=== PATIENT | male | born 1995 | race Caucasian/White ===

== ENCOUNTER 2024-08-10 07:37 | Outpatient (CLI) | payer OTHER ==
--- NOTE | 2024-08-10 22:40 | XRAY Report ---
PROCEDURE: Ankle 3+V RT INDICATIONS: SPRAIN OF UNSPECIFIED LIGAMENT OF RIGHT ANKLE TECHNIQUE: 3 views of the ankle were acquired. COMPARISON: None. FINDINGS: Bones: No acute fractures or dislocations. Old injury involving distal fibular shaft is seen with ch ronic-appearing deformity. Ankle mortise is normally aligned. No suspicious bony lesions. Soft tissues: Mild lateral ankle soft tissue swelling is seen. Moderate tibiotalar joint effusion. A chilles tendon appears normal. IMPRESSION: No acute ankle fracture or dislocation. Old injury involving distal fibular shaft. Ankle mortise is c ongruent. Mild lateral ankle soft tissue swelling. Moderate joint effusion. Reviewed by: Maykel Chavez MD on 08/10/2024 10:39 PM PDT Approved by: Maykel Chavez MD on 08/10/2024 10:39 PM PDT Station ID: [id number]
== END 2024-08-10 07:38 | disposition home or self-care (01) ==
LOC: DI.N 07:37
PROVIDERS: ATTEND Physician Assistant Medical
DX: S93.401A Sprain of unspecified ligament of right ankle, initial encounter (principal); M25.471 Effusion, right ankle